=== PATIENT | male | born 1935 | race Caucasian/White ===

== ENCOUNTER 2016-08-28 05:44 | Day surgery (SDC) | payer MEDICARE, BC ==
--- NOTE | ~2016-08-28 | EGD ---
EGD REPORT [facility] [address] [id number] NAME: CLOVIS ROY : 37 STATUS : REG [facility] PAT#: [id number] AGE: 81 ADM/REG DATE : 08/28/16 MR#: [id number] REPORT SERV DATE: 08/28/16 DICTATED BY: ASYA LIZ DATE: 08/28/16 REPORT STATUS : Draft TRANSCRIBED BY: [employer] DATE: 08/28/16 [facility] Patient Name: Clovis Roy Date of : 1935 Attending MD: ASYA LIZ MD Procedure Date No Time: 08/28/2016 Procedure: Colonoscopy Indications: High risk colon cancer surveillance: Personal history of colonic polyps, Last colonoscopy: March 2014 Referring MD: MARIA G MARIE Medicines: See the Anesthesia note for documentation of the administered medications Complications: No immediate complications. Procedure: Pre-Anesthesia Assessment: - ASA Grade Assessment: III - A patient with severe systemic disease. After I obtained informed consent, the scope was passed under direct vision. Throughout the procedure, the patient's blood pressure, pulse, and oxygen saturations were monitored continuously. The PCF [id number] was introduced through the anus and advanced to the cecum, identified by appendiceal orifice and ileocecal valve. The colonoscopy was performed without difficulty. The patient tolerated the procedure well. The quality of the bowel preparation was adequate. Findings: The perianal and digital rectal examinations were normal. Internal hemorrhoids were found during retroflexion and were small. Diverticula were found in the transverse colon. Lipoma prox ascending colon A sessile polyp was found at the hepatic flexure. The polyp was 8 mm in size. The polyp was removed with a cold snare. Resection and retrieval were complete. A sessile polyp was found in the proximal ascending colon. The polyp was 10 mm in size. The polyp was removed with a hot snare. Resection and retrieval were complete. A sessile polyp was found in the transverse colon. The polyp was 10 mm in size. The polyp was removed with a hot snare. Resection and retrieval were complete. A sessile polyp was found in the descending colon. The polyp was 10 mm in size. The polyp was removed with a hot snare. Resection and retrieval were complete. Impression: - Internal hemorrhoids. EGD REPORT [address] [place]. [address] NAME: CLOVIS ROY : 37 STATUS : REG [facility]#: [id number] AGE: 81 ADM/REG DATE : 08/28/16 MR#: [id number] REPORT SERV DATE: 08/28/16 DICTATED BY: ASYA LIZ DATE: 08/28/16 REPORT STATUS : Draft TRANSCRIBED BY: [employer] DATE: 08/28/16 - Diverticulosis in the transverse colon. Lipoma prox ascending colon - One 8 mm polyp at the hepatic flexure. Resected and retrieved. - One 10 mm polyp in the proximal ascending colon. Resected and retrieved. - One 10 mm polyp in the transverse colon. Resected and retrieved. - One 10 mm polyp in the descending colon. Resected and retrieved. Recommendation: - Patient has a contact number available for emergencies. The signs and symptoms of potential delayed complications were discussed with the patient. Return to normal activities tomorrow. Written discharge instructions were provided to the patient. - Regular diet. - Continue present medications. - Repeat colonoscopy for surveillance based on pathology results. - FOR YOUR BIOPSY RESULTS: Please go to [email or web address] and register to receive your results via the portal. Your biopsy results will be posted there in about 7 to 10 days. IF you do not see result in 10 days, call office. Procedure Code(s): --- Professional --- 41853, Colonoscopy, flexible, proximal to splenic flexure; with removal of tumor(s), polyp(s), or other lesion(s) by snare technique Diagnosis Code(s): --- Professional --- K64.8, Other hemorrhoids K57.30, Diverticulosis of large intestine without perforation or abscess without bleeding D12.4, Benign neoplasm of descending colon D12.2, Benign neoplasm of ascending colon D12.3, Benign neoplasm of transverse colon Z86.010, Personal history of colonic polyps CPT copyright 2013 [employer]. All rights reserved. The codes documented in this report are preliminary and upon associate professor of radiology review may be revised to meet current compliance requirements. Asya Liz MD EGD REPORT [facility] [address] [id number] NAME: CLOVIS ROY : 37 STATUS : REG [facility] PAT#: [id number] AGE: 81 ADM/REG DATE : 08/28/16 MR#: [id number] REPORT SERV DATE: 08/28/16 DICTATED BY: ASYA LIZ DATE: 08/28/16 REPORT STATUS : Draft TRANSCRIBED BY: [employer] DATE: 08/28/16 ASYA LIZ MD 08/28/2016 7:30 AM This report has been signed electronically. Number of Addenda: 0 Note Initiated On: 08/28/2016 6:54 AM Scope Withdrawal Time 0 hours 11 minutes 50 seconds [id number] [id number]
[~2016-08-28 05:44] MED LIST: ASA5GR PO; ASAB PO; BRILINTA90 MG PO; CENTRUM PO; CINNAMONPO PO; CO Q-10100 MG PO; COREG12 PO; FISH-EPA1000 MG PO; FLOMAX4 PO; HYDROCHLOROT25 MG PO; HYTRIN10 MG PO; K-TABS10 MEQ PO; LIPITOR40 PO; LISINOPRIL40 MG PO; LOP25 PO; LOPID6 PO; LOTREL1 CA4 PO; MELA3 PO; NORV10 PO; PLAVIX PO; PRAVACHOL40 MG PO; PRAVACHOL80 MG PO; PROSCAR5 PO
== END 2016-08-28 23:59 | disposition home health service (06) ==
LOC: DMU 05:44
PROVIDERS: Internal Medicine Gastroenterology
PROC: 0DBE8ZX Excision of Large Intestine, Via Natural or Artificial Opening Endoscopic, Diagnostic (ICD-10-PCS; 2016-08-28)
PROC: 0DBM8ZX Excision of Descending Colon, Via Natural or Artificial Opening Endoscopic, Diagnostic (ICD-10-PCS; 2016-08-28)
PROC: 0DBK8ZX Excision of Ascending Colon, Via Natural or Artificial Opening Endoscopic, Diagnostic (ICD-10-PCS; 2016-08-28)
PROC: 0DBL8ZX Excision of Transverse Colon, Via Natural or Artificial Opening Endoscopic, Diagnostic (ICD-10-PCS; principal; 2016-08-28 07:30)
DX: Z12.11 Encounter for screening for malignant neoplasm of colon (principal); D12.4 Benign neoplasm of descending colon; D12.3 Benign neoplasm of transverse colon; D12.2 Benign neoplasm of ascending colon; K64.8 Other hemorrhoids; K57.30 Diverticulosis of large intestine without perforation or abscess without bleeding; I25.10 Atherosclerotic heart disease of native coronary artery without angina pectoris; I25.2 Old myocardial infarction; I10 Essential (primary) hypertension; Z95.5 Presence of coronary angioplasty implant and graft; Z86.010 Personal history of colon polyps
CPT/HCPCS: 88305